=== PATIENT | female | born 1960 | race Caucasian/White ===

== ENCOUNTER 2023-09-07 00:29 | Emergency (ER) | payer MEDICARE ==
[~2023-09-07] VITALS: Ht 160 cm; Wt 99.8 kg
[2023-09-07 00:32] VITALS: BP 157/62; PULSE 69; RESP 17; TEMP 97.8; O2SAT 95
[2023-09-07 01:19] LABS: BASOPHILS # (AUTO) 0.1 K/uL (0.00-0.22); BASOPHILS % (AUTO) 0.8 % (0.0-2.0); EOSINOPHILS # (AUTO) 0.3 K/uL (0-0.4); EOSINOPHILS % (AUTO) 3.8 % (0.0-4.0); HEMOGLOBIN 13.4 g/dL (12.0-16.0); LYMPHOCYTES # (AUTO) 2.3 K/uL (2.5-16.5); LYMPHOCYTES % (AUTO) 30.9 % (20.5-51.1); MEAN CORPUSCULAR HEMOGLOBIN 31 pg (27-31); MEAN CORPUSCULAR HGB CONC 34 g/dL (33-37); MEAN CORPUSCULAR VOLUME 90.7 fL (80-94); MONOCYTES # (AUTO) 0.8 K/uL (0.8-1.0); MONOCYTES % (AUTO) 11.2 % (1.7-9.3); NEUTROPHILS % (AUTO) 53.3 % (42.2-75.2); PLATELET COUNT (AUTO) 215 K/uL (140-450); RED CELL DISTRIBUTION WIDTH 13.2 % (11.6-13.7); WHITE BLOOD COUNT (AUTO) 7.6 K/uL (4.8-10.8)
[2023-09-07 01:32] LABS: ANION GAP 11.8 (8-16); CALCIUM 8.7 mg/dL (8.5-10.1); CARBON DIOXIDE 28.1 mmol/L (21-32); CREATININE 1.1 mg/dL (0.6-1.3); POTASSIUM 3.9 mmol/L (3.5-5.1)
[2023-09-07] MEDS: ASPIRIN 325 MG TAB PO ONE (01:32)
[2023-09-07] MEDS: lisinopriL 20 MG TAB PO ONE (01:33)
[2023-09-07] MEDS: MORPHINE SULFATE 4 MG/ML SYR IVP ONE (01:34)
[2023-09-07 01:42] LABS: ALANINE AMINOTRANSFERASE 28 U/L (12-78); ALBUMIN 3.3 g/dL (3.4-5.0); ALKALINE PHOSPHATASE 78 U/L (50-136); ASPARTATE AMINOTRANSFERASE 24 U/L (15-37); BILIRUBIN,DIRECT 0.1 mg/dL (0.0-0.3); TOTAL BILIRUBIN 0.2 mg/dL (0.0-1.0); TOTAL PROTEIN, SERUM 7.2 g/dL (6.4-8.2)
[2023-09-07] MEDS ORDERED: LISI20TA29 PO (02:27)
[2023-09-07 02:35] VITALS: BP 143/73; PULSE 70; RESP 20; TEMP 97.8; O2SAT 96
== END 2023-09-07 02:35 | disposition home or self-care (01) ==
LOC: MED 00:29
DX: R07.89 Other chest pain (principal); E03.9 Hypothyroidism, unspecified; Z96.652 Presence of left artificial knee joint; Z79.899 Other long term (current) drug therapy; Z88.0 Allergy status to penicillin
CPT/HCPCS: 36415; 71045; 80048; 80076; 83880; 84484; 85025; 85379; 93005; 99285; J2270